=== PATIENT | female | born 1975 | race Hispanic/Latino ===

== ENCOUNTER 2023-09-04 09:11 | Emergency (ER) | payer BC, SELFPAY ==
[2023-09-04] VITALS (10 sets, daily range): BP systolic 167–232; BP diastolic 79–124
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
[2023-09-04] MEDS: ZOFRAN 4 MG IV (10:15)
[2023-09-04] MEDS: DILAUDID 0.5 MG IV (10:15)
[2023-09-04 10:20] LABS: % Basophils 0.5 % (0-2); % Eosinophils 1.3 % (0-6); % Immature Granulocytes 0.6 % (0-0.5); % Lymphocytes 23.3 % (20.5-51.1); % Monocytes 7.8 % (1.7-9.3); % Neutrophils 66.5 % (42.2-75.2); Absolute Eosinophils 0.1 10^3/uL (0-0.7); Absolute Immature Granulocytes 0.1 10^3/uL (0-0.05); Absolute Lymphocytes 1.8 10^3/uL (1.2-3.4); Absolute Monocytes 0.6 10^3/uL (0.1-0.6); Absolute Neutrophils 5.3 10^3/uL (1.4-6.5); Hematocrit 41.5 % (37.0-47.0); Hemoglobin 14.8 g/dL (12.0-16.0); Mean Corp Hgb Conc. 35.7 g/dL (33.0-37.0); Mean Corpuscular Hgb 28.2 pg (27.0-31.0); Mean Corpuscular Volume 79.2 fL (81.0-99.0); Mean Platelet Volume 10.8 fL (7.4-10.4); Nucleated Red Blood Cells % 0 %; Platelet Count 173 10^3/uL (130-400); Red Blood Cell Count 5.24 10^6/uL (4.20-5.40); Red Cell Dist. Width 12.7 % (11.5-14.5); White Blood Cell Count 7.9 10^3/uL (4.8-10.8)
[2023-09-04 10:28] LABS: HCG, Serum Qualitative Screen Negative
[2023-09-04 10:32] LABS: ALT (SGPT) 16 U/L (0-35); AST (SGOT) 22 U/L (14-36); Albumin 4.2 g/dl (3.5-5.0); Alkaline Phosphatase 98 U/L (38-126); Blood Urea Nitrogen 13 mg/dl (7-17); Calcium 9.4 mg/dl (8.4-10.2); Carbon Dioxide 23 mmol/L (22-30); Chloride 98 mmol/L (98-107); Glucose 411 mg/dl (70-99); Potassium 3.8 mmol/L (3.5-5.1); Sodium 134 mmol/L (135-145); Total Bilirubin 0.7 mg/dl (0.2-1.3); Total Protein 7.6 g/dl (6.3-8.2); eGFR > 60.00
[2023-09-04 10:41] LABS: Lipase 333 U/L (23-300)
[2023-09-04] MEDS: NOVOLOG vial 10 UNITS SC (11:51)
[2023-09-04 12:26] LABS: Urine Albumin Trace (Neg - Trace); Urine Bilirubin Negative (Negative); Urine Character Clear (Clear); Urine Color Yellow; Urine Glucose 3+ (Negative); Urine Ketone Negative (Negative); Urine Leukocyte Negative (Negative); Urine Nitrite Negative (Negative); Urine Occult Blood Negative (Negative); Urine Specific Gravity 1.015 (<1.030); Urine Urobilinogen Negative (Neg - 1+)
[2023-09-04 14:27] LABS: Troponin I < 0.012 ng/ml
[2023-09-04 15:03] LABS: Glucose - Point of Care 290 mg/dl (70-99)
[2023-09-04] MEDS: PROTONIX IV 40 MG IV (15:08)
== END 2023-09-04 15:18 | disposition home or self-care (01) ==
LOC: EMR 09:11
PROVIDERS: EMERGENCY PHYSICIAN Emergency Medicine
DX: R10.9 Unspecified abdominal pain (principal); I10 Essential (primary) hypertension
CPT/HCPCS: 99285; 96374; 96375 ×2; 96372; 74177; 80053; 81003; 82962; 83690; 84484; 84703; 85025; 93005; Q9967